=== PATIENT | female | born 1965 ===

== ENCOUNTER 2016-11-11 05:58 | Day surgery (SDC) | payer MEDICAID ==
[2016-11-11 07:08] VITALS: BMI 35.1
[2016-11-11] MEDS ORDERED: Lactated Ringer's 500 ML IV ONE (08:40)
--- NOTE | 2016-11-11 08:40 | CP.SDSHP ---
Same Day Surgery H & P - History Proposed Procedure: colonoscopy Pre-Op Diagnosis: screening - Previous Medical/Surgical History Cardiac: Hypertension Endocrine/Metabolic: Diabetes - Allergies Allergies: Allergies apple Allergy (Severe, Verified 07/15/16 09:09) ITCHING - Physical Exam General Appearance: NAD Vital Signs: Vital Signs 11/11/16 07:07 Temperature 97 F L Pulse Rate 69 Respiratory 19 Rate Blood Pressure 118/72 O2 Sat by Pulse 98 Oximetry Mental Status: Alert & Oriented x3 Neuro: WNL Heart: WNL Lungs: WNL GI: WNL - {Optional Preform as Required} Abdomen: WNL - Impression Pt. Evaluated Today:Candidate for Anesthesia & Procedure: Yes - Date & Time Date: 11/11/16 Time: 08:40 Short Stay Discharge - Short Stay Discharge Admitting Diagnosis/Reason for Visit: ENCOUNTER FOR SCREENING FOR MALIGNANT NEOPLASM OF Disposition: HOME/ ROUTINE
[2016-11-11] MEDS ORDERED: Propofol 10 mg/ml Inj (20 ML) ONE ×2 (08:45→08:56)
[2016-11-11] MEDS ORDERED: Lidocaine Hydrochloride 5 ML INJ ONE (08:45)
[2016-11-11 09:25] VITALS: TEMP 98.4
[2016-11-11 10:14] VITALS: BP 138/86; PULSE 64; RESP 15; O2SAT 96
== END 2016-11-11 10:11 | disposition home or self-care (01) ==
LOC: C.ENDO 05:58
PROVIDERS: ATTEND Internal Medicine Gastroenterology
DX: Z12.11 Encounter for screening for malignant neoplasm of colon (principal); D12.2 Benign neoplasm of ascending colon; D12.4 Benign neoplasm of descending colon; K62.1 Rectal polyp; K64.1 Second degree hemorrhoids; I10 Essential (primary) hypertension; E11.9 Type 2 diabetes mellitus without complications; G47.33 Obstructive sleep apnea (adult) (pediatric); E66.9 Obesity, unspecified; Z98.890 Other specified postprocedural states; Z79.899 Other long term (current) drug therapy; Z91.018 Allergy to other foods

== ENCOUNTER 2017-06-07 14:49 | Emergency (ER) | payer MEDICAID ==
[2017-06-07 14:50] VITALS: BMI 35.1
[2017-06-07 15:10] VITALS: BP 144/90; PULSE 74; RESP 18; TEMP 98.3; O2SAT 98
--- NOTE | 2017-06-07 17:06 | C.PDOC ---
History Of Present Illness 52 y/o female presents to ED with complaints of worsening pain of feet for 2 months. Patient states she had surgery for broken ligaments on feet and has developed pain making her unable to stand for long period of time. Patient report she works standing up and denies weakness, numbness, recent injury or any other complaints at this time. Chief Complaint (Nursing): Lower Extremity Problem/Injury History Per: Patient History/Exam Limitations: no limitations Onset/Duration Of Symptoms: Days Current Symptoms Are (Timing): Still Present Past Medical History Reviewed: Historical Data, Nursing Documentation, Vital Signs Vital Signs: Last Vital Signs Temp 98.3 F 06/07/17 15:06 Pulse 74 06/07/17 15:06 Resp 18 06/07/17 15:06 BP 144/90 06/07/17 15:06 Pulse Ox 98 06/07/17 17:07 - Medical History PMH: Arthritis, Asthma, Hiatal Hernia, HTN, Kidney Stones, Chronic Kidney Disease (KIDNEY STENTS) Surgical History: No Surg Hx - [facility] Procedures INJECT/INFUSE NEC (07/10/14) REMOV URETERAL DRAIN (07/17/14) RETROGRADE PYELOGRAM (06/18/14) URETERAL CATHETERIZATION (06/18/14) VACCINATION NEC (06/26/14) Family History: States: No Known Family Hx - Social History Hx Tobacco Use: No Hx Alcohol Use: No Hx Substance Use: No - Immunization History Hx Tetanus Toxoid Vaccination: No Hx Influenza Vaccination: No Hx Pneumococcal Vaccination: No Review Of Systems Cardiovascular: Negative for: Chest Pain Respiratory: Negative for: Shortness of Breath Gastrointestinal: Negative for: Nausea, Vomiting Musculoskeletal: Positive for: Foot Pain Skin: Negative for: Rash Neurological: Negative for: Weakness, Numbness Physical Exam - Physical Exam Appears: Non-toxic, No Acute Distress Skin: Warm, Dry, No Rash Head: Atraumatic, Normacephalic Neck: Supple Cardiovascular: Rhythm Regular Respiratory: Normal Breath Sounds, No Rales, No Rhonchi, No Wheezing Extremity: Capillary Refill (<2 seconds), No Deformity Pulses: Left Dorsalis Pedis: Normal, Right Dorsalis Pedis: Normal Neurological/Psych: Oriented x3, Normal Motor, Normal Sensation ED Course And Treatment O2 Sat by Pulse Oximetry: 98 (RA) Pulse Ox Interpretation: Normal Medical Decision Making Medical Decision Making: Impression- Plantar Fasciitis Disposition - Disposition Referrals: Omkar Torre DPM [Staff Provider] - Disposition: HOME/ ROUTINE Disposition Time: 17:05 Condition: GOOD Additional Instructions: icepacks to area Prescriptions: traMADol [Ultram] 50 mg PO TID #21 tab Instructions: Plantar Fasciitis (ED) Forms: [facility] (Spanish) Print Language: OMANI - Clinical Impression Clinical Impression: Plantar fascia syndrome - Scribe Statement The provider has reviewed the documentation as recorded by the Tejasibmanoj Lyons All medical record entries made by the Tejasibmanoj were at my direction and personally dictated by me. I have reviewed the chart and agree that the record accurately reflects my personal performance of the history, physical exam, medical decision making, and the department course for this patient. I have also personally directed, reviewed, and agree with the discharge instructions and disposition.
== END 2017-06-07 17:18 | disposition home or self-care (01) ==
LOC: C.ER 14:49
DX: M72.2 Plantar fascial fibromatosis (principal)

== ENCOUNTER 2017-08-17 08:45 | Emergency (ER) | payer MEDICAID ==
[2017-08-17 08:45] VITALS: BMI 35.1
[2017-08-17 08:58] VITALS: TEMP 98.1
--- NOTE | 2017-08-17 09:54 | C.PDOC ---
History Of Present Illness Patient is a 52 year old female with PMHx HTN and multiple disc herniations who presents to the ED with complaint of neck pain for three weeks. She states pain was initially very minimal so she did not seek medical attention. She states pain worsened yesterday which is why she came to ED today. She denies trauma and states she is not sure what worsened the pain. She states she has not taken any medication for the neck pain. She states she has tramadol from foot pain but did not take it for her neck pain. She states she has one cervical disc herniation but is not sure what level and that other disc herniations are in lumbar spine. She states pain in neck is constant in nature. She denies numbness, tingling, dizziness, headache. Time Seen by Provider: 08/17/17 09:32 Chief Complaint (Nursing): Upper Extremity Problem/Injury History Per: Patient Onset/Duration Of Symptoms: Days Current Symptoms Are (Timing): Still Present Quality Of Discomfort: Sharp, Aching Pain Scale Rating Of: 6 Previous Symptoms: Neck Pain. denies: Prior Injury Associated Symptoms: None. denies: Incontinence, New Weakness, New Numbness Exacerbating Factor(s): Nothing Additional History Per: Prior Records Past Medical History Vital Signs: Last Vital Signs Temp 98.1 F 08/17/17 11:00 Pulse 70 08/17/17 11:00 Resp 16 08/17/17 11:00 BP 111/71 08/17/17 11:00 Pulse Ox 99 08/17/17 11:00 - Medical History PMH: Arthritis, Asthma, Hiatal Hernia, HTN, Kidney Stones, Chronic Kidney Disease (KIDNEY STENTS) Denies: Colonic Polyps, Fractures, TIA Surgical History: - [facility] Procedures INJECT/INFUSE NEC (07/10/14) REMOV URETERAL DRAIN (07/17/14) RETROGRADE PYELOGRAM (06/18/14) URETERAL CATHETERIZATION (06/18/14) VACCINATION NEC (06/26/14) Family History: States: Unknown Family Hx - Social History Hx Tobacco Use: No Hx Alcohol Use: No Hx Substance Use: No - Immunization History Hx Tetanus Toxoid Vaccination: No Hx Influenza Vaccination: No Hx Pneumococcal Vaccination: No Review Of Systems Constitutional: Negative for: Fever, Chills Eyes: Negative for: Pain, Vision Change ENT: Negative for: Ear Pain, Ear Discharge Cardiovascular: Negative for: Chest Pain, Palpitations, Orthopnea Respiratory: Negative for: Cough, Shortness of Breath Gastrointestinal: Negative for: Nausea, Vomiting, Abdominal Pain, Constipation Genitourinary: Negative for: Dysuria, Frequency Musculoskeletal: Positive for: Neck Pain. Negative for: Shoulder Pain, Arm Pain , Back Pain Skin: Negative for: Rash Neurological: Negative for: Weakness, Numbness, Incoordination, Change in Speech , Confusion, Headache Physical Exam - Physical Exam Appears: Well, Non-toxic, No Acute Distress Skin: Normal Color, Warm, Dry Head: Atraumatic, Normacephalic Eye(s): bilateral: PERRL, EOMI Ear(s): Bilateral: Normal Nose: Normal Oral Mucosa: Moist Tongue: Normal Appearing Neck: Normal ROM, No Midline Cervical Tenderness, Paracervical Tenderness ( diffuse paraspinal musculature tenderness) Lymphatic: No Adenopathy Chest: Symmetrical Cardiovascular: Rhythm Regular Respiratory: Normal Breath Sounds Gastrointestinal/Abdominal: Bowel Sounds, Soft, No Tenderness Back: Normal Inspection, No CVA Tenderness, Paraspinal Tenderness (thoracic spine, left trapezius tenderness) Extremity: No Pedal Edema Neurological/Psych: Oriented x3, Normal Speech, Normal Cognition, Normal Cranial Nerves, Normal Sensation ED Course And Treatment O2 Sat by Pulse Oximetry: 98 - Other Rad Cervical spine X-Ray: Interpreted by Me, Viewed By Me, Read By Radiologist Interpretation: Straightening of normal cervical spine curvature. BONES: Reversal of the anatomic lordosis with kyphosis. Degree: Mild. DISC SPACES: Normal. SOFT TISSUES: Normal. No prevertebral soft tissue swelling. OTHER FINDINGS: None. IMPRESSION: No significant or acute findings to account for / related to the clinical presentation. Progress Note: Patient's pain improved after muscle relaxer and ibuprofen. Disposition Counseled Patient/Family Regarding: Studies Performed, Diagnosis, Need For Followup, Rx Given - Disposition Referrals: Long Terry MD [Staff Provider] - 08/19/17 Disposition: HOME/ ROUTINE Disposition Time: 10:41 Condition: GOOD Additional Instructions: Wyano flexeril e ibuprofeno miryam lourdes grazyna veces al yaz. No tome naproxeno con ibuprofeno. Simran con la comida. Puede simran tramadol para el dolor lisa. Prescriptions: Cyclobenzaprine [Flexeril] 5 mg PO TID PRN #15 tab PRN Reason: Muscle Spasm Ibuprofen [Motrin Tab] 600 mg PO TID PRN #15 tab PRN Reason: Pain, Moderate (4-7) Instructions: Muscle Spasms (DC) Forms: Gen Discharge Inst Maori, [facility] (Maori) - Clinical Impression Clinical Impression: Muscle spasms of neck - PA / [employer] / Resident Statement MD/DO has reviewed & agrees with the documentation as recorded. MD/DO has examined the patient and agrees with the treatment plan.
[2017-08-17 11:01] VITALS: BP 111/71; PULSE 70; RESP 16
--- NOTE | 2017-08-17 14:43 | RAD ---
PROCEDURE: Cervical Spine Radiographs. HISTORY: Pain. COMPARISON: None. FINDINGS: BONES: Reversal of the anatomic lordosis with kyphosis. Degree: Mild. DISC SPACES: Normal. SOFT TISSUES: Normal. No prevertebral soft tissue swelling. OTHER FINDINGS: None. IMPRESSION: No significant or acute findings to account for/ related to the clinical presentation. Concordant results with the preliminary interpretation rendered by the emergency department physician procedure.
[2017-08-17 15:24] VITALS: O2SAT 98
== END 2017-08-17 11:04 | disposition home or self-care (01) ==
LOC: C.ER 08:45
DX: M62.838 Other muscle spasm (principal)

== ENCOUNTER 2017-09-20 05:51 | Emergency (ER) | payer MEDICAID ==
[2017-09-20 05:51] VITALS: BMI 35.1
[2017-09-20] MEDS ORDERED: Sodium Chloride 0.9% 1,000 ML IV ONE (06:16)
[2017-09-20] MEDS ORDERED: cefTRIAXone IV 1 gm in Dextros 50 ML IVPB ONE (06:43)
[2017-09-20] MEDS ORDERED: Azithromycin 500 MG in Sodium Chloride 0.9% 250 ML IVPB STA (06:44)
--- NOTE | 2017-09-20 06:46 | C.PDOC ---
Chief Complaint (Nursing): Chest Pain Past Medical History Vital Signs: Last Vital Signs Temp 97.4 F L 09/20/17 06:13 Pulse 81 09/20/17 06:13 Resp 16 09/20/17 06:13 BP 142/78 09/20/17 06:13 Pulse Ox 97 09/20/17 06:48 - Medical History PMH: Arthritis, Asthma, Hiatal Hernia, HTN, Kidney Stones, Chronic Kidney Disease (KIDNEY STENTS) Denies: Colonic Polyps, Fractures, TIA Surgical History: - [facility] Procedures INJECT/INFUSE NEC (07/10/14) REMOV URETERAL DRAIN (07/17/14) RETROGRADE PYELOGRAM (06/18/14) URETERAL CATHETERIZATION (06/18/14) VACCINATION NEC (06/26/14) Family History: States: Unknown Family Hx - Social History Hx Tobacco Use: No Hx Alcohol Use: No Hx Substance Use: No - Immunization History Hx Tetanus Toxoid Vaccination: No Hx Influenza Vaccination: No Hx Pneumococcal Vaccination: No ED Course And Treatment ECG: Interpreted By Me, Viewed By Me ECG Rhythm: Sinus Rhythm ECG Interpretation: Normal, No Acute Changes Interpretation Of ECG: NSR, no acute change, normal tracings Rate From EC O2 Sat by Pulse Oximetry: 95 Pulse Ox Interpretation: Abnormal - Radiology CXR: Interpreted by Me, Viewed By Me CXR Interpretation: Yes: Other (incresead markings- Right lower lung field area) Disposition - Disposition Forms: [facility] (Chadian)
--- NOTE | 2017-09-20 06:48 | C.PDOC ---
History Of Present Illness <Fadi Ireland R - Last Filed: 09/20/17 06:53> <Alexandru Pina E - Last Filed: 09/20/17 07:52> 52 year old female presents to the ED for evaluation of anterior chest pain, cough productive of sputum and heavy breathing. Patient reports she has been experiencing cold-like symptoms for 3 days. She denies fever, chills. (Fadi Ireland R) History Per: Patient History/Exam Limitations: no limitations Onset/Duration Of Symptoms: Days (3) Current Symptoms Are (Timing): Still Present Quality: "Pain" Additional History Per: Patient <Fadi Ireland R - Last Filed: 09/20/17 06:53> <Alexandru Pina E - Last Filed: 09/20/17 07:52> Chief Complaint (Nursing): Chest Pain Past Medical History Reviewed: Historical Data, Nursing Documentation, Vital Signs - Medical History PMH: Arthritis, Asthma, Hiatal Hernia, HTN, Kidney Stones, Chronic Kidney Disease (KIDNEY STENTS) Denies: Colonic Polyps, Fractures, TIA Surgical History: No Surg Hx Family History: States: Unknown Family Hx - Social History Hx Tobacco Use: No Hx Alcohol Use: No Hx Substance Use: No - Immunization History Hx Tetanus Toxoid Vaccination: No Hx Influenza Vaccination: No Hx Pneumococcal Vaccination: No <Fadi Ireland - Last Filed: 09/20/17 06:53> Vital Signs: Last Vital Signs Temp 98.5 F 09/20/17 07:43 Pulse 75 09/20/17 07:23 Resp 16 09/20/17 07:23 BP 137/89 09/20/17 07:23 Pulse Ox 96 09/20/17 07:23 - [facility] Procedures INJECT/INFUSE NEC (07/10/14) REMOV URETERAL DRAIN (07/17/14) RETROGRADE PYELOGRAM (06/18/14) URETERAL CATHETERIZATION (06/18/14) VACCINATION NEC (06/26/14) Review Of Systems Constitutional: Negative for: Fever, Chills Cardiovascular: Positive for: Chest Pain Respiratory: Positive for: Cough, Other (heavy breathing ) <Fadi Ireland R - Last Filed: 09/20/17 06:53> Physical Exam - Physical Exam Appears: Non-toxic, No Acute Distress Skin: Normal Color, Warm, Dry Head: Atraumatic, Normacephalic Eye(s): bilateral: Normal Inspection Oral Mucosa: Moist Neck: Supple Chest: Symmetrical, No Deformity, No Tenderness Cardiovascular: Rhythm Regular, No Murmur Respiratory: Normal Breath Sounds, No Rales, No Rhonchi, No Wheezing Extremity: Normal ROM, Capillary Refill (less than 2 seconds ) Neurological/Psych: Oriented x3, Normal Speech, Normal Cognition <Fadi Ireland R - Last Filed: 09/20/17 06:53> ED Course And Treatment ECG: Interpreted By Me, Viewed By Me ECG Rhythm: Sinus Rhythm (Normal, No Acute Changes ) Interpretation Of ECG: NSR, no acute change, normal tracings Rate From EC O2 Sat by Pulse Oximetry: 97 (on RA) Pulse Ox Interpretation: Normal - Radiology CXR: Interpreted by Me, Viewed By Me CXR Interpretation: Yes: Other (incresead markings- Right lower lung field area) Progress Note: Bloodwork, CXR, EKG ordered and reviewed. Toradol IVP and IV Fluids administered. <Fadi Ireland R - Last Filed: 09/20/17 06:53> - Laboratory Results Result Diagrams: 09/20/17 06:52 09/20/17 06:52 Lab Interpretation: Normal ECG: Interpreted By Me, Viewed By Me ECG Rhythm: Sinus Rhythm Pulse Ox Interpretation: Normal - Radiology CXR Interpretation: Yes: No Acute Disease Progress Note: signed over @ 0700, pt sob, R chest discomfort x 3 days. pt seen and examined. pt c/o of her Asthma symptoms x 3 days, ran out of Albuterol nebs treatments @ home. Denies productive cough. lung sounds + mild tubular, no wheezing, no cough. CXR no pna/pnx (dense breast tissues). labs nl. ABG nl. Asthma exacerbation, med non-compliance. Ceftriaxone stopped. Prednisone 40 PO, Duoneb INH Reevaluation Time: 07:19 Reassessment Condition: Improved <Alexandru Pina - Last Filed: 09/20/17 07:52> Medical Decision Making <Fadi Ireland - Last Filed: 09/20/17 06:53> <Alexandru Pina - Last Filed: 09/20/17 07:52> Medical Decision Makin: feels better, ok for d/c. (Alexandru Pina) Disposition <Fadi Ireland - Last Filed: 09/20/17 06:53> Doctor Will See Patient In The: Office Counseled Patient/Family Regarding: Studies Performed, Diagnosis - Disposition Disposition Time: 07:22 <Alexandru Pina - Last Filed: 09/20/17 07:52> - Disposition Disposition: HOME/ ROUTINE Condition: GOOD Forms: [facility] (Montenegrin) - Clinical Impression Clinical Impression: Shortness of breath - Scribe Statement The provider has reviewed the documentation as recorded by the Scribe (Juana Cleveland) <Fadi Ireland - Last Filed: 09/20/17 06:53> <Alexandru Pina - Last Filed: 09/20/17 07:52> - Scribe Statement Provider Attestation: All medical record entries made by the Scribe were at my direction and personally dictated by me. I have reviewed the chart and agree that the record accurately reflects my personal performance of the history, physical exam, medical decision making, and the department course for this patient. I have also personally directed, reviewed, and agree with the discharge instructions and disposition. (Fadi Ireland)
[2017-09-20 07:00] LABS: BASO # 0.1 K/uL (0.0-0.2); BASO % 0.8 % (0.0-2.0); EOS # 0.3 K/uL (0.0-0.7); EOS % 4.7 % (0.0-4.0); HEMOGLOBIN 13.5 g/dL (11.0-16.0); LYMPH # 1.9 K/uL (1.0-4.3); LYMPH % 28.2 % (20.0-40.0); MEAN CELL VOLUME 92.5 fL (81.0-99.0); MEAN CORPUSCULAR HGB CONC 34.6 g/dL (33.0-37.0); MEAN PLATELET VOLUME 10.5 fL (7.2-11.7); MONO # 0.5 K/uL (0.0-0.8); NEUT % 59.3 % (50.0-75.0); NRBC % 0.1 % (0.0-2.0); RBC 4.21 Mil/uL (3.80-5.20); RED CELL DISTRIBUTION WIDTH 13.4 % (11.5-14.5); WHITE BLOOD COUNT 6.7 K/uL (4.8-10.8)
[2017-09-20 07:08] LABS: ABG ALLEN TEST POS; ARTERIAL BLOOD GAS HCO3 16.3 mmol/L (21-28); ARTERIAL BLOOD GAS HEMOGLOBIN 8.2 g/dL (11.7-17.4); ARTERIAL BLOOD GAS O2 SAT 98.3 % (95-98); ARTERIAL BLOOD GAS PCO2 23 mm/Hg (35-45); ARTERIAL BLOOD GAS PH 7.36 (7.35-7.45); ARTERIAL BLOOD GAS PO2 141 mm/Hg (80-100); ARTERIAL BLOOD GAS TCO2 13.7 mmol/L (22-28)
[2017-09-20] MEDS ORDERED: Albuterol-Ipratrop 3 mg / 0.5 (3 ml) UD INH STA ×2 (07:11→07:33)
[2017-09-20 07:16] LABS: CALCIUM 8.8 mg/dl (8.6-10.4); GFR AFRICAN-AMERICAN > 60; GFR NON-AFRICAN AMERICAN > 60
[2017-09-20] MEDS ORDERED: Albuterol 0.083% Inhal Sol (2.5 mg/3 mL) UD ONE (07:39)
[2017-09-20 07:40] LABS: ALB/GLOB RATIO 1.3 (1.0-2.1); ALBUMIN 4.9 g/dL (3.5-5.0); ALT/SGPT < 6 U/L (9-52); AST/SGOT 61 U/L (14-36); BLOOD UREA NITROGEN 17 mg/dL (7-17)
--- NOTE | 2017-09-20 08:28 | RAD ---
HISTORY: chest pain COMPARISON: 05/04/2016 TECHNIQUE: Chest PA and lateral FINDINGS: LUNGS: No active pulmonary disease. PLEURA: No significant pleural effusion identified. No pneumothorax apparent. CARDIOVASCULAR: Normal. OSSEOUS STRUCTURES: No significant abnormalities. VISUALIZED UPPER ABDOMEN: Normal. OTHER FINDINGS: None. IMPRESSION: No active disease.
[2017-09-20 09:22] VITALS: BP 127/81; PULSE 79; RESP 17; O2SAT 97
[2017-09-20 09:23] VITALS: TEMP 98.5
--- NOTE | 2017-09-21 12:13 | CARD ---
APPROVED REPORT EKG Measurement Heart [id number] <Conclusion> Normal sinus rhythm Normal ECG
== END 2017-09-20 09:23 | disposition home or self-care (01) ==
LOC: C.ER 05:51
DX: R06.02 Shortness of breath (principal)
CPT/HCPCS: 36600; 71046; 80053; 82803; 84484; 85025; 87040; 93005; 94640; 96365; 96375; 99285; J0456; J1885; J7040

== ENCOUNTER 2017-12-01 10:20 | Emergency (ER) | payer MEDICAID ==
[2017-12-01 10:50] VITALS: RESP 18; TEMP 98.3; BMI 36.2
[2017-12-01] MEDS ORDERED: Albuterol 0.083% Inhal Sol (2.5 mg/3 mL) UD IH STA (10:51)
[2017-12-01] MEDS ORDERED: Albuterol 0.083% Inhal Sol (2.5 mg/3 mL) UD ONE (11:05)
--- NOTE | 2017-12-01 11:50 | RAD ---
Date of service: 12/01/2017 HISTORY: SOB, cough COMPARISON: 09/20/2017 TECHNIQUE: Chest PA and lateral FINDINGS: LUNGS: No active pulmonary disease. PLEURA: No significant pleural effusion identified. No pneumothorax apparent. CARDIOVASCULAR: Normal. OSSEOUS STRUCTURES: No significant abnormalities. VISUALIZED UPPER ABDOMEN: Normal. OTHER FINDINGS: None. IMPRESSION: No active disease.
[2017-12-01 13:25] VITALS: BP 120/80; PULSE 74; O2SAT 96
[2017-12-01] MEDS ORDERED: Naproxen 550 mg Tab PO STA (13:39)
--- NOTE | 2017-12-01 13:41 | C.PDOC ---
History Of Present Illness 52 year old female patient with Hx of asthma presents to the ER with c/o non- productive cough for x1 week. patient reports her nebulizer does not provide relief. Associated symptoms includes mild pleuritic chest and SOB. Patient denies fever and chills. Time Seen by Provider: 12/01/17 10:28 Chief Complaint (Nursing): Cough, Cold, Congestion History Per: Patient History/Exam Limitations: no limitations Onset/Duration Of Symptoms: Days (x1 week) Current Symptoms Are (Timing): Still Present Associated Symptoms: Cough, Other (SOB and mild pleuritic chest). denies: Fever , Chills Past Medical History Reviewed: Historical Data, Nursing Documentation, Vital Signs Vital Signs: Last Vital Signs Temp 98.3 F 12/01/17 10:42 Pulse 74 12/01/17 13:25 Resp 18 12/01/17 13:25 BP 120/80 12/01/17 13:25 Pulse Ox 96 12/01/17 13:41 - Medical History PMH: Arthritis, Asthma, Hiatal Hernia, HTN, Kidney Stones, Chronic Kidney Disease (KIDNEY STENTS) Surgical History: - [facility] Procedures INJECT/INFUSE NEC (07/10/14) REMOV URETERAL DRAIN (07/17/14) RETROGRADE PYELOGRAM (06/18/14) URETERAL CATHETERIZATION (06/18/14) VACCINATION NEC (06/26/14) Family History: States: Unknown Family Hx - Social History Hx Tobacco Use: No Hx Alcohol Use: No Hx Substance Use: No - Immunization History Hx Tetanus Toxoid Vaccination: No Hx Influenza Vaccination: No Hx Pneumococcal Vaccination: No Review Of Systems Constitutional: Negative for: Fever, Chills Cardiovascular: Positive for: Chest Pain (mild pleuritic chest) Respiratory: Positive for: Cough, Shortness of Breath Physical Exam - Physical Exam Appears: Non-toxic, No Acute Distress Skin: Normal Color, Warm, Dry Head: Atraumatic, Normacephalic Eye(s): bilateral: Normal Inspection Neck: Normal ROM, Supple Chest: Symmetrical, No Deformity Cardiovascular: Rhythm Regular Respiratory: No Accessory Muscle Use, No Wheezing, Other (decreased air entry bilaterally ) Gastrointestinal/Abdominal: Soft, No Tenderness Back: No CVA Tenderness Extremity: Normal ROM (x4), No Pedal Edema, No Calf Tenderness, Capillary Refill (<2 sec) Pulses: Left Dorsalis Pedis: Normal, Right Dorsalis Pedis: Normal Neurological/Psych: Oriented x3, Normal Speech, Normal Motor, Normal Sensation, Normal Reflexes Gait: Steady ED Course And Treatment ECG: Interpreted By Me, Viewed By Me ECG Rhythm: Sinus Rhythm (nml: 81 bpm) ECG Interpretation: Normal, No Acute Changes O2 Sat by Pulse Oximetry: 96 (RA) Pulse Ox Interpretation: Normal - Other Rad CXR X-Ray: Interpreted by Me, Viewed By Me Interpretation: no infiltrate Progress Note: Impression: asthma patient with non-productive cough and SOB. Plans: -- CXR. -- ALbuterol. -- Naproxen. -- predniSONE. Reassess: Patient is resting comfortably. Tolerating PO. Patient is no longer having chest pain or shortness of breath. Patient has no risk factors for pulmonary emboli or DVT. Patient is being discharged home and is being advised to follow up with PCP in 1-2 days. Disposition Counseled Patient/Family Regarding: Studies Performed, Diagnosis, Need For Followup, Rx Given - Disposition Referrals: Ileana Terry MD [Medical Doctor] - Disposition: HOME/ ROUTINE Disposition Time: 13:40 Condition: STABLE Additional Instructions: FOLLOW UP WITH YOUR DOCTOR IN 1-2 DAYS USE MEDICATIONS DIRECTED RETURN TO EMERGENCY ROOM IF SYMPTOMS WORSEN SEGUIMIENTO CON ENAMORADO MDICO EN 1-2 KANG USE MEDICAMENTOS SEGN LO INDICADO REGRESE AL SEUN DE EMERGENCIA SI LOS SNTOMAS EMPEORAN Prescriptions: Mask, Face [Nebulizer Aerosol Mask Adult] 1 dev XX PRN PRN #1 dev PRN Reason: Shortness Of Breath Naproxen 375 mg PO BID PRN #20 tablet PRN Reason: pain Nebulizer and Compressor [[place] Choice Nebulizer] 1 each MC PRN PRN #1 each NS PRN Reason: SOB predniSONE [predniSONE Tab] 40 mg PO DAILY #6 tab Instructions: Asthma, Adult (DC) Forms: [employer] (Kyrgyz) Print Language: RWANDAN - Clinical Impression Clinical Impression: Upper respiratory infection, Asthma exacerbation - Scribe Statement The provider has reviewed the documentation as recorded by the Scribmanoj Bradley Do Provider Attestation: All medical record entries made by the Scribe were at my direction and personally dictated by me. I have reviewed the chart and agree that the record accurately reflects my personal performance of the history, physical exam, medical decision making, and the department course for this patient. I have also personally directed, reviewed, and agree with the discharge instructions and disposition.
[2017-12-01] MEDS ORDERED: Naproxen 550 mg Tab PO ONE (13:51)
== END 2017-12-01 14:06 | disposition home or self-care (01) ==
LOC: C.ER 10:20
DX: J06.9 Acute upper respiratory infection, unspecified (principal); J45.901 Unspecified asthma with (acute) exacerbation

== ENCOUNTER 2018-04-07 07:55 | Emergency (ER) | payer MEDICAID ==
[2018-04-07 07:55] VITALS: BMI 36.2
--- NOTE | 2018-04-07 08:45 | C.PDOC ---
History Of Present Illness 53 y/o female with history of DM and HTN presents to ED with c/o left lower back pain for 3 days worse with movement. 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 Patient has been taking Aleve with no improvement and denies fever, chills, abdominal pain, nausea, vomiting, diarrhea, dysuria, hematuria, change in sensation, neck pain or any other complaints at this time. Chief Complaint (Nursing): Back Pain History Per: Patient History/Exam Limitations: no limitations Onset/Duration Of Symptoms: Days Current Symptoms Are (Timing): Still Present Quality Of Discomfort: "Pain" Past Medical History Reviewed: Historical Data, Nursing Documentation, Vital Signs Vital Signs: Last Vital Signs Temp 98.0 F 04/07/18 08:12 Pulse 72 04/07/18 08:12 Resp 20 04/07/18 08:12 BP 94/62 L 04/07/18 08:12 Pulse Ox 98 04/07/18 08:12 - Medical History PMH: Arthritis, Asthma, Hiatal Hernia, HTN, Kidney Stones, Chronic Kidney Disease (KIDNEY STENTS) Surgical History: No Surg Hx - [facility] Procedures INJECT/INFUSE NEC (07/10/14) REMOV URETERAL DRAIN (07/17/14) RETROGRADE PYELOGRAM (06/18/14) URETERAL CATHETERIZATION (06/18/14) VACCINATION NEC (06/26/14) Family History: States: No Known Family Hx - Social History Hx Tobacco Use: No Hx Alcohol Use: No Hx Substance Use: No - Immunization History Hx Tetanus Toxoid Vaccination: No Hx Influenza Vaccination: No Hx Pneumococcal Vaccination: No Review Of Systems Except As Marked, All Systems Reviewed And Found Negative. Constitutional: Negative for: Fever, Chills Gastrointestinal: Negative for: Nausea, Vomiting, Diarrhea Genitourinary: Negative for: Dysuria, Hematuria Musculoskeletal: Positive for: Back Pain Physical Exam - Physical Exam Appears: Well, Non-toxic, No Acute Distress Skin: Normal Color, Warm, Dry, No Rash Head: Atraumatic, Normacephalic Eye(s): bilateral: Normal Inspection, PERRL, EOMI Nose: Normal Oral Mucosa: Moist Neck: Normal ROM, No Midline Cervical Tenderness, No Paracervical Tenderness, Supple Chest: Symmetrical, No Deformity, No Tenderness Cardiovascular: Rhythm Regular Respiratory: Normal Breath Sounds, No Rales, No Rhonchi, No Wheezing Gastrointestinal/Abdominal: Normal Exam, Bowel Sounds (normoactive), Soft, No Tenderness, No Mass, No Distention, No Guarding, No Rebound Back: Normal Inspection, No CVA Tenderness, No Vertebral Tenderness, Paraspinal Tenderness (left) Extremity: Normal ROM, No Pedal Edema, Capillary Refill (<2 seconds) Extremity: Bilateral: Atraumatic, No Pedal Edema, Normal Color And Temperature, Normal ROM Pulses: Left Radial: Normal, Right Radial: Normal, Left Dorsalis Pedis: Normal, Right Dorsalis Pedis: Normal Neurological/Psych: Oriented x3, Normal Speech, Normal Cognition, Normal Motor, Normal Sensation Gait: Steady ED Course And Treatment O2 Sat by Pulse Oximetry: 98 (RA) Pulse Ox Interpretation: Normal Medical Decision Making Medical Decision Makin Initial Plan: * Valium * Lidoderm patch * Toradol * Aortic US [secondary to hypotension, age, and low back pain] 1020 Patient returned from ultrasound, states pain has improved. 1130 Notified by nursing that patient eloped from Emergency Department. 1220 Aortic US normal, no AAA. Disposition - Disposition Disposition: ELOPEMENT - ER ONLY Disposition Time: 11:30 Condition: STABLE - Clinical Impression Clinical Impression: Low back pain, Eloped from emergency department - PA / TRANSFORMATION CONSULTANT / Resident Statement MD/DO has reviewed & agrees with the documentation as recorded. - Scribe Statement The provider has reviewed the documentation as recorded by the Scribmanoj Lyons All medical record entries made by the Tejasibmanoj were at my direction and personally dictated by me. I have reviewed the chart and agree that the record accurately reflects my personal performance of the history, physical exam, medical decision making, and the department course for this patient. I have also personally directed, reviewed, and agree with the discharge instructions and disposition.
[2018-04-07] MEDS ORDERED: Lidocaine 5% Patch TD STA (08:49)
[2018-04-07] MEDS ORDERED: Lidocaine 5% Patch TD ONE (08:56)
[2018-04-07 10:31] VITALS: BP 120/76; PULSE 64; RESP 16; TEMP 97.5
--- NOTE | 2018-04-07 12:20 | US ---
Date of service: 04/07/2018 PROCEDURE: Ultrasound of the aorta HISTORY: back pain, hypotension COMPARISON: None TECHNIQUE: Grayscale imaging was performed. FINDINGS: The aorta is normal in caliber without evidence for atherosclerotic calcified or mural plaque. No evidence for aortic aneurysm. IMPRESSION: Normal caliber of the aorta. No sonographic evidence for aortic aneurysm
[2018-04-08 00:20] VITALS: O2SAT 98
== END 2018-04-07 11:30 | disposition left against medical advice (07) ==
LOC: C.ER 07:55
DX: M54.5 Low back pain (principal); I10 Essential (primary) hypertension; E11.9 Type 2 diabetes mellitus without complications

== ENCOUNTER 2018-07-10 10:05 | Emergency (ER) | payer MEDICAID | END 2018-07-10 10:56 | disposition home or self-care (01) | LOC: C.ER 10:05 ==

== ENCOUNTER 2018-07-13 18:52 | Emergency (ER) | payer MEDICAID ==
[2018-07-13 18:53] VITALS: BMI 36.2
[2018-07-13 19:08] VITALS: BP 154/93; RESP 18; TEMP 98.4
--- NOTE | 2018-07-13 19:45 | C.PDOC ---
History Of Present Illness 53 year old female fell 3 days ago hit her left shoulder and hip, came here for evaluation, had no hip pain at the time but states since leaving here her hip has been hurting her. She describes it pain to her buttock when she walks. Patient has been taking aleve and ibuprofen, last dose 2PM. Denies new injury or change in sensation. - HPI Time Seen by Provider: 07/13/18 19:10 Chief Complaint (Nursing): Trauma History Per: Patient History/Exam Limitations: no limitations Onset/Duration Of Symptoms: Days Injury Occurred (Timing): Days Ago: (3) Location Of Injury: Left: Hip Recent travel outside of the [place]: No Past Medical History Reviewed: Historical Data, Nursing Documentation, Vital Signs Vital Signs: Last Vital Signs Temp 98.4 F 07/13/18 19:05 Pulse 77 07/13/18 19:05 Resp 18 07/13/18 19:05 BP 154/93 H 07/13/18 19:05 Pulse Ox 99 07/13/18 19:05 - Medical History PMH: Arthritis, Asthma, Hiatal Hernia, HTN, Kidney Stones, Chronic Kidney Disease (KIDNEY STENTS) Denies: Colonic Polyps, Fractures, TIA Surgical History: - [facility] Procedures INJECT/INFUSE NEC (07/10/14) REMOV URETERAL DRAIN (07/17/14) RETROGRADE PYELOGRAM (06/18/14) URETERAL CATHETERIZATION (06/18/14) VACCINATION NEC (06/26/14) Family History: States: Unknown Family Hx - Social History Hx Tobacco Use: No Hx Alcohol Use: No Hx Substance Use: No - Immunization History Hx Tetanus Toxoid Vaccination: No Hx Influenza Vaccination: Yes Hx Pneumococcal Vaccination: No Review Of Systems Constitutional: Negative for: Fever, Chills Eyes: Negative for: Pain, Redness ENT: Negative for: Mouth Swelling Cardiovascular: Negative for: Chest Pain, Palpitations Respiratory: Negative for: Cough, Shortness of Breath Gastrointestinal: Negative for: Nausea, Vomiting, Diarrhea Genitourinary: Negative for: Dysuria, Hematuria Musculoskeletal: Positive for: Other (Left hip pain) Skin: Negative for: Rash Neurological: Negative for: Weakness, Numbness, Dizziness Physical Exam - Physical Exam Appears: Well, Non-toxic, No Acute Distress Skin: Normal Color, Warm, No Rash Head: Atraumatic, Normacephalic Eye(s): bilateral: Normal Inspection, PERRL, EOMI Neck: Normal ROM, Supple Chest: Symmetrical Respiratory: No Accessory Muscle Use, Other (Normal inspiratory effort) Gastrointestinal/Abdominal: Soft, No Distention Back: No Vertebral Tenderness, Straight Leg Raising (Left leg positive at 30 degrees), Other (Left buttock area tenderness) Pulses: Left Dorsalis Pedis: Normal, Right Dorsalis Pedis: Normal Neurological/Psych: Oriented x3, Normal Speech, Normal Cranial Nerves (Grossly intact), Normal Motor, Normal Sensation Gait: Steady ED Course And Treatment O2 Sat by Pulse Oximetry: 99 (Room air) Pulse Ox Interpretation: Normal Medical Decision Making Medical Decision Making: flexeril given, patient stable for discharge and follow up with primary. Disposition Counseled Patient/Family Regarding: Diagnosis, Need For Followup, Rx Given - Disposition Referrals: Augie Khalil MD [Staff Provider] - Disposition: HOME/ ROUTINE Disposition Time: 19:46 Condition: STABLE Prescriptions: Cyclobenzaprine [Flexeril] 10 mg PO BID #10 tab Instructions: Sciatica (DC) Forms: Gen Discharge Inst Cypriot, S.N. [employer] (Cypriot), Work Excuse Print Language: [place] - Clinical Impression Clinical Impression: Sciatica of left side - PA / MINE WIRER / Resident Statement MD/DO has reviewed & agrees with the documentation as recorded. - Scribe Statement The provider has reviewed the documentation as recorded by the Scribmanoj Simental All medical record entries made by the Scribe were at my direction and personally dictated by me. I have reviewed the chart and agree that the record accurately reflects my personal performance of the history, physical exam, medical decision making, and the department course for this patient. I have also personally directed, reviewed, and agree with the discharge instructions and disposition.
[2018-07-13 20:52] VITALS: PULSE 69
[2018-07-13 20:58] VITALS: O2SAT 99
== END 2018-07-13 20:15 | disposition home or self-care (01) ==
LOC: C.ER 18:52
DX: M54.32 Sciatica, left side (principal)

== ENCOUNTER 2018-08-18 13:18 | Emergency (ER) | payer BC, MEDICAID ==
[2018-08-18 13:18] VITALS: BMI 36.2
[2018-08-18 13:29] VITALS: BP 136/87; PULSE 72; RESP 20; TEMP 98.2; O2SAT 98
--- NOTE | 2018-08-18 13:49 | C.PDOC ---
History Of Present Illness 53-year-old female presents to the ED for evaluation of pain and swelling to the plantar region of her left foot that started 3 days ago. Patient states that she was scrubbing calluses on her foot and thinks she scrubbed too hard; she devleoped a wound in the area. She denies fever, chills, discharge, bleeding. Time Seen by Provider: 08/18/18 13:36 Chief Complaint (Nursing): Lower Extremity Problem/Injury History Per: Patient History/Exam Limitations: no limitations Onset/Duration Of Symptoms: Days (3) Current Symptoms Are (Timing): Still Present Severity: Mild Additional History Per: Patient - Ankle/Foot Description Of Injury: denies: Fell, Struck With Object, Struck Against Object Past Medical History Reviewed: Historical Data, Nursing Documentation, Vital Signs Vital Signs: Last Vital Signs Temp 98.2 F 08/18/18 13:22 Pulse 72 08/18/18 13:22 Resp 20 08/18/18 13:22 BP 136/87 08/18/18 13:22 Pulse Ox 98 08/18/18 13:22 - Medical History PMH: Arthritis, Asthma, Hiatal Hernia, HTN, Kidney Stones, Chronic Kidney Disease (KIDNEY STENTS) Surgical History: No Surg Hx - [facility] Procedures INJECT/INFUSE NEC (07/10/14) REMOV URETERAL DRAIN (07/17/14) RETROGRADE PYELOGRAM (06/18/14) URETERAL CATHETERIZATION (06/18/14) VACCINATION NEC (06/26/14) Family History: States: No Known Family Hx - Social History Hx Tobacco Use: No Hx Alcohol Use: No Hx Substance Use: No - Immunization History Hx Tetanus Toxoid Vaccination: No Hx Influenza Vaccination: Yes Hx Pneumococcal Vaccination: No Review Of Systems Constitutional: Negative for: Fever, Chills Musculoskeletal: Positive for: Foot Pain (pain and swelling to plantar region of left foot ) Skin: Negative for: Rash, Other (discharge ) Neurological: Negative for: Weakness, Numbness Physical Exam - Physical Exam Appears: Well, Non-toxic, No Acute Distress Skin: Normal Color, Warm, Dry, Other (see fot exam) Extremity: Normal ROM, No Pedal Edema, No Calf Tenderness, Capillary Refill (< 2 sec all digits ), No Deformity, Other (plantar aspect of left foot: approx 1.5cm wound at area of metatarsals with surrounding erythema. no fluctuance, induration or proximal streaking. no palpable foreign bodies) Extremity: Bilateral: Normal ROM Pulses: Left Dorsalis Pedis: Normal, Right Dorsalis Pedis: Normal Neurological/Psych: Oriented x3, Normal Sensation Gait: Steady ED Course And Treatment O2 Sat by Pulse Oximetry: 98 (on RA) Pulse Ox Interpretation: Normal Progress Note: Patient given PO Clindamycin and PO Motrin. Rxs for same given. Patient instructed to follow up with PMD/clinic in 1-2 days. She understands she should return to ED if her symptoms worsen. Disposition Counseled Patient/Family Regarding: Diagnosis, Need For Followup, Rx Given - Disposition Referrals: [facility] [Outside] Disposition: HOME/ ROUTINE Disposition Time: 13:50 Condition: STABLE Additional Instructions: FOLLOW UP WITH YOUR DOCTOR OR CLINIC IN 1-2 DAYS USE MEDICATIONS DIRECTED RETURN TO EMERGENCY ROOM IF YOUR SYMPTOMS BECOME WORSE SEGUIRSE CON ENAMORADO MDICO O CLNICA EN 1-2 KANG UTILICE MEDICAMENTOS BINA SE DIRIGE VUELVA A LA SEUN DE EMERGENCIA SI GAURAV SNTOMAS SE HACEN PEOR Prescriptions: Clindamycin [Cleocin] 300 mg PO TID #21 cap Ibuprofen [Motrin Tab] 600 mg PO Q6 PRN #30 tab PRN Reason: fever/pain Instructions: Cellulitis (Skin Infection), Adult (DC) Forms: [facility] (Micronesian) Print Language: POLISH - Clinical Impression Clinical Impression: Cellulitis of left foot - Scribe Statement The provider has reviewed the documentation as recorded by the Tejasibe (Juana Cleveland) Provider Attestation: All medical record entries made by the Tejasibmanoj were at my direction and person ally dictated by me. I have reviewed the chart and agree that the record accurately reflects my personal performance of the history, physical exam, medical decision making, and the department course for this patient. I have also personally directed, reviewed, and agree with the discharge instructions and disposition.
== END 2018-08-18 14:14 | disposition home or self-care (01) ==
LOC: C.ER 13:18
DX: L03.116 Cellulitis of left lower limb (principal)